=== PATIENT | male | born 1995 | race African-American/Black ===

== ENCOUNTER 2017-04-13 10:33 | Emergency (ER) | payer OTHER ==
--- NOTE | 2017-04-13 11:18 | RAD ---
LEFT FOOT 3 VIEWS: Date: 04/13/17 HISTORY: Left foot injury. FINDINGS: Joint spaces are preserved. Lisfranc joint alignment is anatomic. Plantar arch is maintained. Soft ti ssue swelling is suspected over the dorsum of the foot. No acute fracture or dislocation. IMPRESSION: No acute osseous abnormalities are demonstrated. POS: [facility]
== END 2017-04-13 11:43 | disposition home or self-care (01) ==
LOC: SCSER 10:33
DX: S93.602A Unspecified sprain of left foot, initial encounter (principal); X50.9XXA Other and unspecified overexertion or strenuous movements or postures, initial encounter; Y93.67 Activity, basketball